=== PATIENT | female | born 1975 | race Caucasian/White ===

== ENCOUNTER → 2018-08-15 12:02 | Outpatient (CLI) | payer BC, SELFPAY ==
[2018-08-15 12:40] LABS: Hematocrit 41.5 % (37-47); Hemoglobin 13.5 g/dl (12.0-15.0); Mean Corp Hgb Conc 32.5 g/gl (32-36); Mean Corpuscular Hgb 30.1 pg (27.0-32.0); Mean Corpuscular Volume 92.6 fL (81-99); Mean Platelet Vol. 10.8 fl (6.2-12.0); Platelet Count 281 K/mm3 (150-450); RBC Distribution Width CV 12.8 % (11.6-14.6); RBC Distribution Width SD 43.2 fl (35.1-43.9); Red Blood Count 4.48 M/mm3 (4.2-5.4); White Blood Count 5.9 K/mm3 (4.4-11.0)
[2018-08-15 12:41] LABS: Scan Indicated on CBC? Y/N NO
[2018-08-15 13:04] LABS: Progesterone Level 4.68 ng/mL (See Comment); hCG Titer Quant., Serum < 1 mIU/mL (<9 non-preg)
[2018-08-15 13:06] LABS: Hemoglobin A1c 5.2 % (4.2-6.3)
[2018-08-15 15:11] LABS: Estradiol 78.7 pg/mL; Free T3 2.7 pg/mL (2.18-3.98); T4 Free Direct 1.02 ng/dL (0.76-1.46)
[2018-08-20 13:39] LABS: HPV Reflexed? NOT INDICATED
== END ==
PROVIDERS: Referring Provider Obstetrics & Gynecology; Visit Provider Obstetrics & Gynecology
DX: Z12.4 Encounter for screening for malignant neoplasm of cervix (principal); N92.0 Excessive and frequent menstruation with regular cycle
CPT/HCPCS: 36415; 82670; 83036; 84144; 84403; 84439; 84443; 84481; 84702; 85027; 88175; G0145